=== PATIENT | female | born 1955 | race Caucasian/White ===

== ENCOUNTER 2017-02-07 09:34 | Emergency (ER) | payer BC ==
[~2017-02-07] VITALS: Ht 152.4 cm; Wt 57.0 kg
[~2017-02-07 09:34] MED LIST: ACYC800T57 PO; HYDR-906 PO
[2017-02-07 09:35] VITALS: Ht 152.4 cm; Wt 57.0 kg
[2017-02-07] MEDS ORDERED: FLUT9.9S NASAL (10:30)
[2017-02-07] MEDS ORDERED: AZIT250T94 PO (10:30)
[2017-02-07] MEDS ORDERED: MED4DP PO (10:31)
--- NOTE | 2017-02-07 10:49 | ERD ---
ER Documentation Chief Complaint Date/Time DATE: 02/07/17 TIME: 10:46 Chief Complaint cold , congestion ,st, headache , fever HPI This patient is a 61-year-old female presenting to the emergency department for ongoing cough, nasal congestion, and headache. Symptoms have been ongoing intimately for the past 2 weeks. The main complaint is sinus congestion. The patient has been taking no medication for relief of symptoms. Symptoms are constant. The patient denies urinary symptoms, nausea, vomiting, diarrhea, or other symptoms. ROS All systems reviewed and are negative except as per history of present illness. Medications Home Meds Active Scripts Methylprednisolone* (Medrol* DOSE PACK) 4 Mg/Dose-Pack Tab.ds.pk, 4 MG PO . DIRECTED, #1 PACKET Prov:FAUSTINO GLEZ PA-C 02/07/17 Azithromycin* (Zithromax*) 250 Mg Tablet, 250 MG PO .ZPACK DIRECTED, #6 TAB TAKE 500 MG (2 TABS) THE FIRST DAY THEN 250 MG (1 TAB) DAYS 2-5 Prov:FAUSTINO GLEZ PA-C 02/07/17 Fluticasone Propionate (Flonase Allergy Relief) 9.9 Ml [place].susp, 1 SPRAY NASAL BID, #1 BOTTLE TO EACH NOSTRIL Prov:FAUSTINO GLEZ PA-C 02/07/17 Hydrocodone/Acetaminophen ([place] 5-325 Tablet) 1 Each Tablet, 1 TAB PO Q6H Y for PAIN, #10 TAB Prov:JACK PEARSON PA-C 08/27/16 Acyclovir* (Zovirax*) 800 Mg Tablet, 800 MG PO 5 TIMES DAILY for 7 Days, TAB Prov:JACK PEARSON PA-C 08/27/16 Allergies Allergies: Coded Allergies: No Known Allergy (Unverified , 02/07/17) PMhx/Soc History of Surgery: Yes (APPENDECTOMY) Anesthesia Reaction: No Hx Neurological Disorder: No Hx Respiratory Disorders: No Hx Cardiac Disorders: No Hx Psychiatric Problems: No Hx Miscellaneous Medical Probl: No Hx Alcohol Use: No Hx Substance Use: No Hx Tobacco Use: No Smoking Status: Never smoker Physical Exam Vitals Vital Signs Date Time Temp Pulse Resp B/P Pulse Ox O2 Delivery O2 Flow Rate FiO2 02/07/17 09:35 98.1 68 18 124/60 97 Physical Exam Const: Nontoxic, well-appearing female resting in no acute distress. Head: Atraumatic Eyes: Normal Conjunctiva ENT: Normal External Ears, Nose and Mouth. The patient has some tenderness to percussion of the ethmoid, maxillary, and frontal sinuses. Neck: Full range of motion..~ No meningismus. Resp: Clear to auscultation bilaterally Cardio: Regular rate and rhythm, no murmurs Abd: Soft, non tender, non distended. Normal bowel sounds Skin: No petechiae or rashes Back: No midline or flank tenderness Ext: No cyanosis, or edema Neur: Awake and alert Psych: Normal Mood and Affect Procedures/MDM 61-year-old female presenting to the emergency department with complaints of nasal congestion, and cough. On physical examination the patient does have some tenderness to percussion of the nasal sinuses which is concerning for acute sinusitis. The patient is stable for outpatient management with a prescription for azithromycin, Flonase, and Medrol Dosepak. All questions and concerns were addressed. The patient agrees with the discharge plan and diagnosis. Close follow-up with a primary care physician advised. Strict ER return precautions were discussed. I have low suspicion for deep tissue infection, septicemia, or other emergent conditions. Departure Diagnosis: Primary Impression: Sinusitis Sinusitis location: unspecified location Chronicity: acute Recurrence: non -recurrent Qualified Code: J01.90 - Acute non-recurrent sinusitis, unspecified location Additional Impression: Nasal congestion Condition: Fair Patient Instructions: Sinus Headache, Sinusitis, Abx Tx Additional Instructions: No mas mejor en 2-3 burns, regresar. Mas peor en 24 horas, regresear rapidamente. Ir a doctor primario in 5-7 burns. Usar instrucciones cuando negin medicamento. FAUSTINO GLEZ PA-C Feb 07, 2017 10:49
== END 2017-02-07 10:47 | disposition home or self-care (01) ==
LOC: FTE 09:34
DX: J01.90 Acute sinusitis, unspecified (principal)
CPT/HCPCS: 99284